=== PATIENT | male | born 1980 | race Caucasian/White ===

== ENCOUNTER 2024-05-13 19:31 | Emergency (ER) | payer BC, SELFPAY ==
[2024-05-13 19:38] VITALS: BP 125/105
[2024-05-13 19:58] VITALS: BMI 28.5
--- NOTE | 2024-05-13 20:49 | ED.GENMED ---
History of Present Illness
General
Chief Complaint: Skin Problem
Source: patient
Time Seen by Provider: 05/13/24 20:27
History of Present Illness
History of Present Illness:
43-year-old male presenting to the emergency department for evaluation of left thumb laceration sustained with using a butter knife. Patient went to urgent care where they told him that he sustained a laceration to an artery and needed to go to the
ER for further evaluation. Patient reports bleeding is controlled with pressure dressing. He is right-hand dominant, tetanus is up-to-date. No other injuries were sustained.
Past History
Past History
ED Past Medical History: None
ED Past Surgical History: Appendectomy and Tonsilectomy
Social History
Tobacco: Non-smoker
Alcohol: None
Drug: None
Personal: Partner
Living: with family
Review of Systems
Review of Systems
All Other Systems: ROS reviewed and negative except as documented in HPI and ROS
Phy Exam
Physical Exam
Physical Exam:
GENERAL: Alert , in no apparent distress
EYE: conjunctiva clear
Head: Normocephalic atraumatic
NECK: Supple,
ENT: mmm.
LUNGS: no acute respiratory distress
NEUROLOGICAL: Alert and oriented
SKIN: Warm and dry, skin intact. J-shaped 1-1/2 cm superficial laceration to the left thumb. There is no active bleeding. There is no arterial spurting. Patient has full range of motion of the left thumb at the IP joint and MCP joint.
Sensation is grossly intact to light touch. Cap refill less than 2 seconds.
MUSCULOSKELETAL: well perfused.
PSYCH: Normal and appropriate interaction.
Scores
Heart Failure Risk
Heart Failure Risk Score: Not Applicable
Heart Score for Chest Pain Patients
STEMI patient?: Not applicable
Withdrawal Assessment of Alcohol
Withdrawal Assessment Completed?: Not applicable
Course
Vital Signs
Initial and Last Documented VS:
Initial Vital Signs
Temp Pulse Resp BP Pulse Ox
98.0 F 73 18 125/105 98
05/13/24 19:38 05/13/24 19:38 05/13/24 19:38 05/13/24 19:38 05/13/24 19:38
Last Documented Vital Signs
Temp Pulse Resp BP Pulse Ox
98.0 F 73 18 125/105 98
05/13/24 19:38 05/13/24 19:38 05/13/24 19:38 05/13/24 19:38 05/13/24 19:38
Procedures
Laceration Closure
Left Thumb:
Status of Wound: clean
Size of Wound in cm: 1.5
Description of Wound Edges: sharp
Preparation: cleaned with saline
Anesthesia: Digital-Regional
Wound exploration: no tendon involvement
Type of Closure: Dermabond-skin glue
MDM/Problems Addressed
Differential Diagnosis Includes:
Superficial laceration, based off exam findings I have no suspicion for arterial injury, tendon laceration or ligamentous injury or nerve injury.
MDM/Problems Addressed:
43-year-old male presenting emergency department for laceration of his left thumb while using a butter knife. Urgent care told patient they were concern for arterial injury however at time of my exam there is no active or arterial spurting. No
tendon or nerve laceration. Patient has full range of motion of the digit. While performing digital block patient was having a very difficult time sitting still and for patient safety as well as my own I did offer the patient Dermabond instead of
suturing to which patient was agreeable. Dermabond was placed with good hemostasis. Dressing over top was applied. Patient advised on wound care. Stable for discharge home.
*Pulse Oximetry
Patient hypoxic: no
*Critical Care Note
Total Time (30-74mins, 75-104mins- exclusive of procedures): Not Applicable
ED Attending Note
-
Portions of this chart may have been created with voice recognition software.� Occasional wrong word or��sound alike� substitutions may have occurred due to the inherent limitations of voice recognition software.
Discharge Plan
Departure
Patient Disposition: Home (Routine Discharge)
Date of Disposition: 05/13/24
Time of Disposition: 20:49
Patient with high blood pressure during this ER visit?: No
Discharge Problem:
Laceration of left thumb
Instructions: Laceration Repair With Glue ED
Stand Alone Forms: Return to Work
Interventions
Interventions:
*Risk Screen - Suicide Last Done: 05/13/24 19:38
*General Assessment Last Done: 05/13/24 19:38
*Neglect/Abuse Screening Last Done: 05/13/24 19:38
ED- Fall Risk Assessment Last Done: 05/13/24 19:58
*ED COVID-19 Vaccine History Last Done: 05/13/24 19:58
*Nursing Disposition Last Done: 05/13/24 21:09
ED-Skin Assessment Last Done: 05/13/24 21:05
Discharge Date and Time
Discharge Date/Time: 05/13/24 21:11
Print Language: NAMIBIAN
== END 2024-05-13 21:11 | disposition home or self-care (01) ==
LOC: EMR 19:31
PROVIDERS: EMERGENCY PHYSICIAN Student in an Organized Health Care Education/Training Program
DX: S61.012A Laceration without foreign body of left thumb without damage to nail, initial encounter (principal); W26.0XXA Contact with knife, initial encounter
CPT/HCPCS: 99282; 12001

== ENCOUNTER 2025-06-28 13:44 | Emergency (ER) | payer BC, SELFPAY ==
[2025-06-28 13:45] VITALS: BP 121/84
[2025-06-28 14:07] LABS: Hematocrit 44.8 % (39.0-52.0); Hemoglobin 15.0 g/dL (13.0-18.0); Mean Corp Hgb Conc. 33.5 g/dL (33.0-37.0); Mean Corpuscular Volume 88.4 fL (80.0-94.0); Nucleated Red Blood Cells % 0 % (-); Platelet Count 250 10^3/uL (130-400); Red Cell Dist. Width 12.5 % (11.5-14.5)
[2025-06-28 14:18] LABS: ALT (SGPT) 23 U/L (0-50); AST (SGOT) 24 U/L (17-59); Albumin 4.6 g/dl (3.5-5.0); Alkaline Phosphatase 64 U/L (38-126); Blood Urea Nitrogen 13 mg/dl (9-20); Calcium 8.9 mg/dl (8.4-10.2); Carbon Dioxide 28 mmol/L (22-30); Chloride 103 mmol/L (98-107); Glucose 89 mg/dl (70-99); Potassium 4.0 mmol/L (3.5-5.1); Sodium 135 mmol/L (135-145); Total Protein 7.4 g/dl (6.3-8.2); eGFR > 60.00
--- NOTE | 2025-06-28 15:14 | ED.GENMED ---
History of Present Illness
General
Chief Complaint: Abdominal Pain
Time Seen by Provider: 06/28/25 15:06
History of Present Illness
History of Present Illness:
46-year-old male presents emergency department for ration of lower abdominal pain. He states he has had this pain waxing waning for several months but over the past 3 to 4 days it has become much more intense. Having difficulty passing stool.
Still passing flatus however. No fevers, night sweats, or weight loss. No prior abdominal surgical history or history of colonoscopy. Denies any black or bloody stools.
Past History
Past History
ED Past Medical History: None
ED Past Surgical History: Appendectomy and Tonsilectomy
Social History
Tobacco: Non-smoker
Alcohol: None
Drug: None
Personal: Partner
Living: with family
Review of Systems
Review of Systems
Allergies reviewed?: Yes
All Other Systems: ROS reviewed and negative except as documented in HPI and ROS
Phy Exam
Physical Exam
Physical Exam:
GEN: Well appearing, NAD, WDWN
HEENT: Oral mucosa moist, no scleral icterus
Cardiac: Regular rate
Lung: No respiratory distress, no tachypnea
Abdomen: Soft, moderate to severe tenderness diffusely across the lower abdomen maximal in the left lower quadrant, no upper abdominal tenderness, no rigidity
MSK: No gross deformity or injuries
Skin: Good color, no pallor or jaundice, no rashes
Neuro: AO x3, moves all extremities freely
Psych: Calm, cooperative
Course
Orders/Labs/Results
Orders:
Orders
06/28/25 13:54
CMP [Comprehensive Metabolic Panel] Urgent
Complete Blood Count/With Diff Urgent
06/28/25 15:14
CT Abd/Pel (IV only)-DH only Urgent
Comment:
Reason For Exam: lower abd pain
Ketorolac [Toradol] 15 mg .ROUTE .STK-MED ONE
Ketorolac [Toradol] 15 mg IV NOW STA
Abnormal Lab Results
06/28/25
13:54
Absolute Monos (auto) 0.9 H 10^3/uL
(0.1-0.6)
06/28/25 13:54
06/28/25 13:54
Vital Signs
Initial and Last Documented VS:
Initial Vital Signs
Temp Pulse Resp BP Pulse Ox
97.9 F 74 18 121/84 98
06/28/25 13:45 06/28/25 13:45 06/28/25 13:45 06/28/25 13:45 06/28/25 13:45
Last Documented Vital Signs
Temp Pulse Resp BP Pulse Ox
97.9 F 74 18 121/84 98
06/28/25 13:45 06/28/25 13:45 06/28/25 13:45 06/28/25 13:45 06/28/25 15:14
MDM/Problems Addressed
MDM/Problems Addressed:
CT reveals acute uncomplicated diverticulitis. Will treat with oral antibiotics, labs reassuring, nonperitoneal exam findings
*Pulse Oximetry
SaO2: 98
Oxygen Mode of Delivery: Room air
Patient hypoxic: no
*Critical Care Note
Total Time (30-74mins, 75-104mins- exclusive of procedures): Not Applicable
ED Attending Note
-
Portions of this chart may have been created with voice recognition software.� Occasional wrong word or��sound alike� substitutions may have occurred due to the inherent limitations of voice recognition software.
Discharge Plan
Departure
Patient Disposition: Home (Routine Discharge)
Date of Disposition: 06/28/25
Time of Disposition: 17:30
Patient with high blood pressure during this ER visit?: No
Discharge Problem:
Acute diverticulitis
Instructions: Clear Liquid Diet, Diverticulitis (DC)
Prescriptions:
New
ciprofloxacin HCl 500 mg tablet
500 mg PO BID 10 Days Qty: 20 0RF
metronidazole 500 mg tablet
500 mg PO TID 10 Days Qty: 30 0RF
Stand Alone Forms: Return to Work
Interventions
Interventions:
*Risk Screen - Suicide Last Done: 06/28/25 13:45
*General Assessment Last Done: 06/28/25 17:42
*Neglect/Abuse Screening Last Done: 06/28/25 17:42
*ED COVID-19 Vaccine History Last Done: 06/28/25 17:35
*ED Influenza Vaccine History Last Done: 06/28/25 13:45
[facility] Fall Risk Assessment Tool Last Done: 06/28/25 17:42
*Nursing Disposition Last Done: 06/28/25 17:37
[facility]ooarbnb[facility] Assessment Last Done: 06/28/25 15:41
Discharge Date and Time
Discharge Date/Time: 06/28/25 17:38
Print Language: BRAZILIAN
[2025-06-28] MEDS: TORADOL 15 MG IV (15:17)
== END 2025-06-28 17:38 | disposition home or self-care (01) ==
LOC: EMR 13:44
PROVIDERS: Emergency Medicine; EMERGENCY PHYSICIAN Emergency Medicine
DX: K57.32 Diverticulitis of large intestine without perforation or abscess without bleeding (principal)
CPT/HCPCS: 99284; 96374; 74177; 80053; 85025; Q9967